=== PATIENT | female | born 1995 | race Caucasian/White ===

== ENCOUNTER 2023-03-01 21:12 | Emergency (ER) | payer MEDICAID ==
[~2023-03-01] VITALS: Ht 152.4 cm; Wt 52.3 kg
[2023-03-01 21:59] VITALS: BP 108/73
[2023-03-01 22:38] LABS: URINE HCG NEGATIVE (NEG)
[2023-03-01 22:51] LABS: CLARITY,URINE CLOUDY (Clear); COLOR,URINE YELLOW (Yellow); GLUCOSE, URINE NEGATIVE (Neg); KETONES,URINE NEGATIVE (Neg); LEUKOCYTE ESTERASE ,URINE TRACE (Neg); NITRITES, URINE NEGATIVE (Neg); OCCULT BLOOD,URINE SMALL (Neg); PH,URINE 5.5 (4.8-8.0); PROTEIN,URINE NEGATIVE (Neg); UROBILINOGEN,URINE 0.2 E.U/dL (0.2-1.0)
[2023-03-01 23:00] LABS: UA COLLECTION TYPE CLN CATCH MIDSTREAM
[2023-03-01 23:02] LABS: BACTERIA,URINE 1+ /HPF (Neg); MUCUS STRANDS FEW /LPF (Neg); SQUAMOUS EPITHELIAL CELL,UR FEW /LPF (FEW); TRANSITIONAL EPI CELLS,URINE FEW /HPF; WBC,URINE TNTC /HPF (0-4)
[2023-03-01] MEDS ORDERED: SULF1TAB49 PO (23:13)
== END 2023-03-01 23:53 | disposition home or self-care (01) ==
LOC: ER 21:13
DX: N39.0 Urinary tract infection, site not specified (principal); Z88.1 Allergy status to other antibiotic agents; Z79.899 Other long term (current) drug therapy
CPT/HCPCS: 81001; 81025; 87077; 87088; 87186; 99283

== ENCOUNTER 2023-05-25 10:08 | Emergency (ER) | payer MEDICAID ==
[~2023-05-25] VITALS: Ht 152.4 cm; Wt 52.3 kg
[2023-05-25 10:12] VITALS: BP 114/64
[2023-05-25 10:52] LABS: CLARITY,URINE CLOUDY (Clear); COLOR,URINE YELLOW (Yellow); GLUCOSE, URINE NEGATIVE (Neg); KETONES,URINE NEGATIVE (Neg); LEUKOCYTE ESTERASE ,URINE MODERATE (Neg); NITRITES, URINE NEGATIVE (Neg); OCCULT BLOOD,URINE TRACE-INTACT (Neg); PROTEIN,URINE NEGATIVE (Neg); UROBILINOGEN,URINE 0.2 E.U/dL (0.2-1.0)
[2023-05-25 10:56] LABS: UA COLLECTION TYPE CLN CATCH MIDSTREAM; URINE HCG NEGATIVE (NEG)
[2023-05-25 10:58] LABS: WBC CLUMPS,URINE FEW /HPF (NEGATIVE)
[2023-05-25 10:59] LABS: BACTERIA,URINE 1+ /HPF (Neg); RBC,URINE 0-2 /HPF (0-2); SQUAMOUS EPITHELIAL CELL,UR MODERATE /LPF (FEW); WBC,URINE 20-30 /HPF (0-4)
[2023-05-25] MEDS ORDERED: SULF1TAB49 PO (11:13)
== END 2023-05-25 11:17 | disposition home or self-care (01) ==
LOC: ER 10:08
DX: N39.0 Urinary tract infection, site not specified (principal); Z88.1 Allergy status to other antibiotic agents; Z79.899 Other long term (current) drug therapy
CPT/HCPCS: 81001; 81025; 87077; 87088; 87186; 99283

== ENCOUNTER 2023-05-27 10:11 | Emergency (ER) | payer MEDICAID ==
[~2023-05-27] VITALS: Ht 152.4 cm; Wt 51.8 kg
[~2023-05-27 10:11] MED LIST: SULF1TAB49 PO
[2023-05-27 10:22] VITALS: BP 103/63
[2023-05-27] MEDS ORDERED: dexamethasone sod phosphate 10mg/ml inj IM STA (10:53)
[2023-05-27] MEDS ORDERED: SUMAtriptan succ. 6 MG/0.5ml vial SQ ONE (10:55)
[2023-05-27] MEDS ORDERED: proCHLORperazine 10 MG/2 ml inj IM ONE (10:55)
[2023-05-27] MEDS ORDERED: dexamethasone sod phosphate 10mg/ml inj IV STA (11:04)
[2023-05-27] MEDS ORDERED: proCHLORperazine 10 MG/2 ml inj IV ONE (11:05)
[2023-05-27] MEDS ORDERED: SUMA100T PO (11:44)
== END 2023-05-27 11:47 | disposition home or self-care (01) ==
LOC: ER 10:11
DX: G43.909 Migraine, unspecified, not intractable, without status migrainosus (principal); Z88.1 Allergy status to other antibiotic agents
CPT/HCPCS: 96372; 96374; 96375; 99284; J0780; J1100; J3030

== ENCOUNTER 2023-07-12 08:18 | Emergency (ER) | payer MEDICAID ==
[~2023-07-12] VITALS: Ht 152.4 cm; Wt 51.4 kg
[2023-07-12 08:27] VITALS: BP 126/72; PULSE 85; RESP 18; TEMP 98.6; O2SAT 98
[2023-07-12] MEDS ORDERED: TRIA15CR61 TOP (10:30)
== END 2023-07-12 10:51 | disposition home or self-care (01) ==
LOC: ER 08:18
DX: R21 Rash and other nonspecific skin eruption (principal); Z79.899 Other long term (current) drug therapy
CPT/HCPCS: 99283